=== PATIENT | female | born 1955 | race Caucasian/White ===

== ENCOUNTER 2017-02-16 15:43 | Inpatient (IN) | payer SELFPAY ==
--- NOTE | ~2017-02-16 | DS ---
Discharge Summary [facility] [address] [place]. [address] NAME: CIERRA QUINONES : 55 STATUS : DIS IN PAT#: [id number] AGE: 61 ADM/REG DATE : 02/16/17 MR#: [id number] REPORT SERV DATE: 02/28/17 DICTATED BY: MAYTE DUNBAR DATE: 02/27/17 REPORT STATUS : Draft TRANSCRIBED BY: GORDON DATE: 02/27/17 Data Collection from hospitalization DISCHARGE DIAGNOSES: 1. Atrial flutter. 2. Hypertension. 3. Hypothyroidism. 4. Obstructive sleep apnea. 5. Obesity. CONSULTATION: None. PROCEDURES PERFORMED: 1. Transesophageal echocardiogram, 02/19/2017. 2. Ablation, 02/19/2017. MEDICATIONS: Eliquis 5 mg twice daily, aspirin 81 mg daily, Lasix 20 mg daily, Synthroid 112 mcg daily, Prinivil 40 mg daily, Zyrtec 5 mg daily, Mobic 15 mg daily. CONDITION AT DISCHARGE: Upon discharge, she did appear to be doing well and had no complaints. DISPOSITION: She was discharged home to continue a cardiac diet. She was to have no lifting greater than 5 pounds, and was to have light activity for one week. She was to follow up with Dr. Albin Evans in one month. HOSPITAL COURSE: This is a very pleasant 61-year-old female who had noted complaints of extreme fatigue and dizziness and lightheadedness over the last week prior to admission. She had presented to her physician's office on the day of admission, who diagnosed her with an atrial arrhythmia and sent her to [facility]. The EKG here demonstrated evidence of typical atrial flutter with a saw tooth pattern in the inferior leads. She was begun on IV Cardizem. She was being administered apixaban for CVA prophylaxis. She denied any other significant symptoms including chest discomfort. Upon admission to the hospital, she had been placed on a regular diet. She was begun on electrolyte protocol as well as the above medications. Following the day of admission, she did appear to be comfortable and had no new complaints noted. She was continued on her current medications. Ablation had been discussed with the patient and she was agreeable to proceed. On 02/18/2017, she had remained in atrial flutter and was continued on supportive care. On 02/19/2017, she did undergo the above transesophageal echocardiogram and following this, she did undergo the above ablation as well. She did remain in stable condition following these procedures and was then discharged with the above instructions. Information collected by: Brenden Segura. I submit the above information as my discharge summary. RW/MODL Discharge Summary [facility] [id number] [place]. [address] NAME: CIERRA QUINONES : 55 STATUS : DIS IN PAT#: [id number] AGE: 61 ADM/REG DATE : 02/16/17 MR#: [id number] REPORT SERV DATE: 02/28/17 DICTATED BY: MAYTE DUNBAR DATE: 02/27/17 REPORT STATUS : Draft TRANSCRIBED BY: GORDON DATE: 02/27/17 Mayte Dunbar M.D. / [id number] CC: Josephine Martin Michael W
--- NOTE | ~2017-02-16 | HP ---
History And Physical [facility] [address] [place]. [address] NAME: CIERRA CAMILO : 55 STATUS : REG ER PAT#: [id number] AGE: 61 ADM/REG DATE : 02/16/17 MR#: [id number] REPORT SERV DATE: 02/16/17 DICTATED BY: CHAD REA DATE: 02/16/17 REPORT STATUS : Draft TRANSCRIBED BY: MODLesley DATE: 02/16/17 DATE OF ADMISSION: 02/16/2017 REASON FOR ADMISSION: Atrial flutter. HISTORY OF PRESENT ILLNESS: Ms. Camilo is a very pleasant 61-year-old woman, who had noted complaints of extreme fatigue, dizziness, and lightheadedness over the last week. She presented to her physician's office today, who diagnosed her with an atrial arrhythmia and sent her to the [facility] Emergency Room. The EKG here demonstrated evidence of typical atrial flutter with a sawtooth pattern in the inferior leads. The patient was started on IV Cardizem. She is being administered apixaban for CVA prophylaxis. She is denying any other significant symptoms including chest discomfort. PAST MEDICAL HISTORY: Notable for: 1. History of chest discomfort a few years ago. Underwent an echocardiogram, stress MPI and a cardiac catheterization, all of which were unremarkable. 2. History of hypertension. 3. History of hypothyroidism, for which she takes levothyroxine. CURRENT MEDICATIONS: Include meloxicam, furosemide, lisinopril, levothyroxine, 81 mg aspirin, and Zyrtec. FAMILY HISTORY: Noncontributory. Negative for premature coronary disease or sudden cardiac . SOCIAL HISTORY: Negative for tobacco or alcohol. REVIEW OF SYSTEMS: As noted above. All other systems reviewed and negative. PHYSICAL EXAMINATION: VITAL SIGNS: Blood pressure of 132/70; pulse of 100, regularly irregular in what appears to be typical atrial flutter; respirations 16. GENERAL: Well developed, well nourished, no acute distress. HEENT: No icterus. Good dentition. NECK: Supple. No masses or thyromegaly. LUNGS: Breathing comfortably. No rales or wheezes. COR: She has a regularly irregular rhythm. ABD: Soft, nondistended, nontender. No hepatosplenomegaly. EXT: No clubbing, cyanosis, or edema. Peripheral pulses 2+/= bilaterally. SKIN: Warm and dry. No visible lesions. MS: Chest wall without deformity. No obvious clavicular fractures. NEURO/PSYCH: Oriented x3. No anxiety or depression. DATA: EKG demonstrates a sawtooth pattern atrial flutter in the inferior leads with variable ventricular response. Normal QRS and QT intervals. No evidence for ischemia, infarction, History And Physical [address] [address] NAME: CIERRA CAMILO : 55 STATUS : REG ER PAT#: [id number] AGE: 61 ADM/REG DATE : 02/16/17 MR#: [id number] REPORT SERV DATE: 02/16/17 DICTATED BY: CHAD REA DATE: 02/16/17 REPORT STATUS : Draft TRANSCRIBED BY: GORDON DATE: 02/16/17 or chamber hypertrophy. LABORATORY VALUES: Essentially unremarkable. Negative troponin. Normal electrolytes. Creatinine slightly elevated at 1.3. White count of 8.6, hematocrit of 38, platelet count 294. IMPRESSION: A very pleasant patient with new diagnosis of atrial flutter. By her report, it appears to have been present over the last week. Due to its duration and the fact that she was not taking anticoagulation until she presented to the emergency room, we will need to wait on treatment for the atrial flutter in restoring a sinus rhythm. If we were to do it within the next one to two weeks, it would need to be done with a preoperative transesophageal echocardiogram. We talked about potential treatment options including a GRACE cardioversion, but also we discussed the potential for radiofrequency ablation. She is trying to decide on these different options. For now, we are starting Eliquis, we are trying to change her from IV to oral Cardizem to see if we can rate control her. If we are able to rate control her and she is comfortable, we may be able to discharge her and bring her back for either a GRACE cardioversion or radiofrequency ablation. This will be assessed tomorrow by my partner, Dr. Toney Dunbar. KARIN/LISETTEL Josephine Martin#: [id number] / [id number] CC: Romeo Conte
--- NOTE | ~2017-02-16 | TEE ---
Transesophageal Echocardiogram [facility] [address] [place]. [address] NAME: CIERRA QUINONES : 55 STATUS : ADM IN PAT#: [id number] AGE: 61 ADM/REG DATE : 02/16/17 MR#: [id number] REPORT SERV DATE: 02/19/17 DICTATED BY: ALBIN ORONA DATE: 02/19/17 REPORT STATUS : Draft TRANSCRIBED BY: GORDON DATE: 02/19/17 INDICATION: 61-year-old woman with atrial flutter. PROCEDURE: After questions were answered, consents were signed, the patient was sedated with propofol per Anesthesia. The probe was placed in mid esophagus, and images were obtained without difficulty. At the conclusion of the procedure, the probe was withdrawn. The patient was continue with her ablation procedure in the EP lab. 2D INTERPRETATION: The left ventricular size and function was normal. There was good contractility with an EF of greater than 55%. The mitral valve opened adequately. No prolapse was noted. The left atrium was grossly normal in size. The left atrial appendage was evaluated in multiple views. No thrombus was noted in the left atrium nor the left atrial appendage. The interatrial septum was intact with its morphology was consistent with lipomatous hypertrophy. The aortic valve was trileaflet and opened adequately. The tricuspid valve was grossly normal. The pulmonic valve was not well visualized. The right ventricular size was upper normal on this GRACE study. There was a trivial pericardial effusion. There was mild to moderate atherosclerotic plaquing noted in the descending aorta and aortic arch. COLOR FLOW: Trace mitral and aortic regurgitation with no significant tricuspid regurgitation. CONCLUSION: 1. NORMAL LEFT VENTRICULAR SYSTOLIC FUNCTION WITH ESTIMATED LVEF OF 55%. 2. NO THROMBUS IN THE LEFT ATRIUM NOR THE LEFT ATRIAL APPENDAGE. 3. NO SIGNIFICANT VALVULAR ABNORMALITY. WO/MODLesley Albin Orona M.D., Ph.D, F.A.C.C. / [id number] CC: Josephine Martin Michael W
[2017-02-16 15:21] LABS: BASOPHILS 0.7 %; BASOPHILS ABSOLUTE 0.06 10/3/uL (0.0-0.16); EOSINOPHILS 2.7 %; EOSINOPHILS ABSOLUTE 0.23 10/3/uL (0.0-0.53); ER CBC TAT 0 Hrs 11 Mins; HEMATOCRIT 38.6 % (36.0-48.0); HEMOGLOBIN 12.5 g/dL (12.0-16.0); IMMATURE GRANULOCYTES 0.1 %; IMMATURE GRANULOCYTES ABSOLUTE 0.01 10/3/uL (0.0-0.11); LYMPHOCYTES 26.1 %; LYMPHOCYTES ABSOLUTE 2.25 10/3/uL (0.67-4.30); MEAN CORPUS HGB CONC 32.4 g/dL (32.0-36.0); MEAN CORPUSCULAR HEMOGLOB 26.3 pg (26.0-34.0); MEAN CORPUSCULAR VOLUME 81.3 fL (80-100); MEAN PLATELET VOLUME 11.2 fL (9.2-13.0); MONOCYTES 7.2 %; MONOCYTES ABSOLUTE 0.62 10/3/uL (0.21-1.20); NEUTROPHILS 63.2 %; NEUTROPHILS ABSOLUTE 5.46 10/3/uL (2.02-8.40); PLATELET COUNT 294 10/3/uL (150-400); RBC DISTRIBUTION WIDTH 15.6 % (12.0-16.0); RED CELL COUNT 4.75 10/6/uL (4.0-5.6); WHITE BLOOD CELLS 8.6 10/3/uL (4.5-10.5)
[2017-02-16 15:23] LABS: MANUAL DIFF NO %
[2017-02-16 15:30] LABS: PARTIAL THROMBO TIME 29.6 SEC (22.5-37.2); PROTIME (NOT ORD) 12.8 SEC (12.0-14.5)
[~2017-02-16 15:43] MED LIST: ASAB PO; L20 PO; LISINOPRIL40 MG PO; MOBIC15 MG PO; SYN112 PO
[2017-02-16] MEDS ORDERED: CETIRIZINE HCL5 MG PO (15:44)
[2017-02-16 15:45] LABS: BUN (BLOOD UREA NITROGEN) 19 MG/DL (6-23); CHEST PAIN PROFILE TAT 0 Hrs 35 Mins; CHLORIDE, SERUM 107 MMOL/L (96-112); CO2 (CARBON DIOXIDE) 26 MMOL/L (24-34); CREATININE 1.31 MG/DL (0.55-1.02); GFR AFRICAN AMERICAN 51 ML/MIN (>=60); GFR NON AFRICAN AMERICAN 44 ML/MIN (>=60); GLUCOSE, SERUM 94 MG/DL (60-99); POTASSIUM, SERUM 4.4 MMOL/L (3.5-5.3); SODIUM, SERUM 140 MMOL/L (135-148); TROPONIN I <0.02 NG/ML (<0.05)
[2017-02-17 05:21] LABS: BASOPHILS 0.8 %; BASOPHILS ABSOLUTE 0.06 10/3/uL (0.0-0.16); EOSINOPHILS ABSOLUTE 0.36 10/3/uL (0.0-0.53); HEMATOCRIT 38.6 % (36.0-48.0); HEMOGLOBIN 12.5 g/dL (12.0-16.0); IMMATURE GRANULOCYTES 0.3 %; IMMATURE GRANULOCYTES ABSOLUTE 0.02 10/3/uL (0.0-0.11); LYMPHOCYTES ABSOLUTE 2.62 10/3/uL (0.67-4.30); MANUAL DIFF NO %; MEAN CORPUS HGB CONC 32.4 g/dL (32.0-36.0); MEAN CORPUSCULAR HEMOGLOB 26.4 pg (26.0-34.0); MEAN CORPUSCULAR VOLUME 81.4 fL (80-100); MEAN PLATELET VOLUME 11.2 fL (9.2-13.0); MONOCYTES 9.6 %; NEUTROPHILS 48.3 %; NEUTROPHILS ABSOLUTE 3.51 10/3/uL (2.02-8.40); PLATELET COUNT 259 10/3/uL (150-400); RBC DISTRIBUTION WIDTH 15.6 % (12.0-16.0); RED CELL COUNT 4.74 10/6/uL (4.0-5.6); WHITE BLOOD CELLS 7.3 10/3/uL (4.5-10.5)
[2017-02-17 05:32] LABS: BUN (BLOOD UREA NITROGEN) 21 MG/DL (6-23); CALCIUM, SERUM 9.6 MG/DL (8.5-10.4); CHLORIDE, SERUM 108 MMOL/L (96-112); CO2 (CARBON DIOXIDE) 25 MMOL/L (24-34); CREATININE 1.24 MG/DL (0.55-1.02); GFR AFRICAN AMERICAN 54 ML/MIN (>=60); GFR NON AFRICAN AMERICAN 47 ML/MIN (>=60); GLUCOSE, SERUM 91 MG/DL (60-99); POTASSIUM, SERUM 4.2 MMOL/L (3.5-5.3); SODIUM, SERUM 141 MMOL/L (135-148)
[2017-02-19 05:38] LABS: BUN (BLOOD UREA NITROGEN) 29 MG/DL (6-23); CHLORIDE, SERUM 108 MMOL/L (96-112); CO2 (CARBON DIOXIDE) 24 MMOL/L (24-34); CREATININE 1.34 MG/DL (0.55-1.02); GFR AFRICAN AMERICAN 49 ML/MIN (>=60); GFR NON AFRICAN AMERICAN 43 ML/MIN (>=60); GLUCOSE, SERUM 92 MG/DL (60-99); POTASSIUM, SERUM 4.1 MMOL/L (3.5-5.3); SODIUM, SERUM 137 MMOL/L (135-148)
[2017-02-19 05:41] LABS: BASOPHILS 0.6 %; BASOPHILS ABSOLUTE 0.05 10/3/uL (0.0-0.16); EOSINOPHILS 4.3 %; EOSINOPHILS ABSOLUTE 0.37 10/3/uL (0.0-0.53); HEMATOCRIT 40.6 % (36.0-48.0); HEMOGLOBIN 12.9 g/dL (12.0-16.0); IMMATURE GRANULOCYTES 0.2 %; IMMATURE GRANULOCYTES ABSOLUTE 0.02 10/3/uL (0.0-0.11); LYMPHOCYTES 32.4 %; LYMPHOCYTES ABSOLUTE 2.77 10/3/uL (0.67-4.30); MEAN CORPUS HGB CONC 31.8 g/dL (32.0-36.0); MEAN CORPUSCULAR VOLUME 81.7 fL (80-100); MEAN PLATELET VOLUME 11.4 fL (9.2-13.0); MONOCYTES 10.2 %; MONOCYTES ABSOLUTE 0.87 10/3/uL (0.21-1.20); NEUTROPHILS 52.3 %; NEUTROPHILS ABSOLUTE 4.48 10/3/uL (2.02-8.40); PLATELET COUNT 275 10/3/uL (150-400); RBC DISTRIBUTION WIDTH 15.6 % (12.0-16.0); RED CELL COUNT 4.97 10/6/uL (4.0-5.6); WHITE BLOOD CELLS 8.6 10/3/uL (4.5-10.5)
[2017-02-19 05:42] LABS: MANUAL DIFF NO %
[2017-02-19 10:36] LABS: INTERNATIONAL NORMAL RATI 1.1 UNITS (-); PROTIME (NOT ORD) 13.9 SEC (12.0-14.5)
== END 2017-02-19 22:51 | disposition home or self-care (01) | DRG 274 ==
LOC: ER 15:43 → 5NO 18:27
PROVIDERS: Emergency Medicine; Hospitalist; Internal Medicine Clinical Cardiac Electrophysiology
PROC: 4A023FZ Measurement of Cardiac Rhythm, Percutaneous Approach (ICD-10-PCS; principal; 2017-02-19)
PROC: 02583ZZ Destruction of Conduction Mechanism, Percutaneous Approach (ICD-10-PCS; 2017-02-19)
PROC: 4A0234Z Measurement of Cardiac Electrical Activity, Percutaneous Approach (ICD-10-PCS; 2017-02-19)
PROC: 02K83ZZ Map Conduction Mechanism, Percutaneous Approach (ICD-10-PCS; 2017-02-19)
DX: I48.92 Unspecified atrial flutter (principal); I10 Essential (primary) hypertension; E03.9 Hypothyroidism, unspecified; Z79.82 Long term (current) use of aspirin
CPT/HCPCS: 71020; 80048; 83735; 84484; 85025; 85610; 85730; 93005; 93312; 93320; 93325; 93613; 93653; 96374; 99285; A9270-GY; C1732; C1781; C1893; C1894; J2370